=== PATIENT | male | born 1980 | race Caucasian/White ===

== ENCOUNTER 2019-11-14 04:53 | Emergency (ER) | payer OTHER, SELFPAY ==
--- NOTE | ~2019-11-14 | CT_ITS ---
EXAMINATION: CT brain wo con DATE: 11/14/2019 06:12 INDICATION: Fall. Head injury. TECHNIQUE: Computed tomography (CT) of the head was performed without intravenous contrast. The mA wa s adjusted according to patient size. Iterative reconstruction technique was employed. Exam dose: 60 5.33 mGy-cm total exam DLP. COMPARISON: None FINDINGS: No intracranial mass lesion or hemorrhage or cerebrovascular accident is evident. No midlin e shift or mass effect. Normal ventricular size. No subdural or epidural hematoma. There is subcutaneous emphysema in the right chlorination operator space and subcutaneous tissues along the righ t scalp consistent with clinically. Laceration according to the clinician. No skull fracture or bone destruction. No radiopaque foreign body is evident. Included paranasal sinuses and mastoid air cells are unremarkable except for focal posterolateral rig ht ethmoid air cell opacification and approximately 11 mm mucus retention cyst or polyp along the lat eral right maxillary sinus wall. IMPRESSION: Subcutaneous emphysema the right chlorination operator space and right scalp consistent with lacera tion; no skull fracture No acute intracranial finding Reviewed, dictated and finalized at [facility]. Reviewed, dictated and finalized at [facility]. IMPRESSION: Subcutaneous emphysema the right chlorination operator space and right scalp consistent with laceration; no skull fracture No acute intracranial finding
[2019-11-14 04:57] VITALS: BP 126/88; PULSE 94; RESP 20; TEMP 36.8; O2SAT 95
--- NOTE | 2019-11-14 05:41 | ED.FALL ---
HPI - Fall General Chief Complaint: Fall Stated Complaint: fall, head inj Time Seen by Provider: 11/14/19 05:40 History of Present Illness HPI Narrative: He had to much to drink tonight and fell a few feet down stairs and struck his head on some lawn care equipment. He has been moderately confused after the fall. No LOC. He sustained a laceration to the right periauricular area. Related Data Home Medications Medication Instructions Recorded Confirmed No Home Medications 11/14/19 11/14/19 Allergies Allergy/AdvReac Type Severity Reaction Status Date / Time Penicillins Allergy Unknown Unknown Verified 11/14/19 05:00 Review of Systems Review of Systems: All systems reviewed & are unremarkable except as noted in HPI and below [facility] Family History Family History Mother Family history of malignant neoplasm of breast in first degree relative Social History Social History (Updated 11/15/19 @ 03:16 by Jose Narayanan MD) Smoking status: Current every day smoker Alcohol intake: current Exam Const: General: healthy appearing, alert and confusion HENMT: Other: 4 cm laceration anterior to the right ear Eyes: Pupils: Equal, round and reactive pupils present Resp: Effort & Inspection: normal respiratory effort Auscultation: clear to auscultation bilaterally Cardio: Rate: regular rate Rhythm: regular rhythm Neuro: General: moves all extremities Cranial nerves: Yes Nystagmus present Speech: Abnormal speech present slurred Course Vital Signs Vital signs: Vital Signs Temperature 36.8 C 11/14/19 04:57 Pulse Rate 94 11/14/19 04:57 Respiratory Rate 11/14/19 04:57 Blood Pressure 126/88 11/14/19 04:57 Pulse Oximetry 95 11/14/19 04:57 Temperature 36.8 C 11/14/19 04:57 Pulse Rate 94 11/14/19 04:57 Respiratory Rate 11/14/19 04:57 Blood Pressure 126/88 11/14/19 04:57 Pulse Oximetry 95 11/14/19 04:57 Procedures Laceration Laceration 1: Site: face Side (If applicable): right Size (cm): 4 Description: irregular Depth: simple, single layer Amount of anesthesia used (mL): 4 ====== Skin Level ====== Skin layer closed with: other (fast gut) Size (cm): 5-0 Number of sutures: 5 Technique: simple, interrupted ====== Subcutaneous Layer ====== ====== Muscle Layer ====== ====== Tendon Layer ====== MDM - Fall MDM Narrative Medical decision making narrative: Obtained head CT due to trauma with abnormal CGS and signs of rauma above clavicles, although this is like just due to intoxication. Imaging Data Radiologist's impression: ITS Impressions Head CT 11/14/19 10:47 IMPRESSION: Subcutaneous emphysema the right title curator space and right scalp consistent with laceration; no skull fracture No acute intracranial finding Discharge Plan Discharge Clinical Impression: Facial laceration Patient Disposition: Home, Self-Care Condition: Stable Instructions: Laceration (ED) Prescriptions: No Action No Home Medications RF: 0 Follow-up/Referrals: Zach Taylor DO [Primary Care Provider] - Discharge Date/Time: 11/14/19 06:45 Quality Ledy Coma Scale Eyes: To Voice Verbal: Oriented and Alert Motor: Follows Commands Ledy Coma Total Score: 14
[2019-11-14] MEDS: TETANUS,DIPHTHERIA,AC PERTUSSIS ADULT (0.5 ML) BOOSTRIX IM (05:59)
== END 2019-11-14 06:45 | disposition home or self-care (01) ==
PROVIDERS: Emergency Provider Emergency Medicine; PCP Internal Medicine
DX: S01.311A Laceration without foreign body of right ear, initial encounter (principal); F17.200 Nicotine dependence, unspecified, uncomplicated; Z23 Encounter for immunization; W10.9XXA Fall (on) (from) unspecified stairs and steps, initial encounter
CPT/HCPCS: 12013; 70450; 90471; 90715; 99284

== ENCOUNTER 2022-05-15 11:59 | Emergency (ER) | payer BC, SELFPAY ==
[2022-05-15 12:08] VITALS: BP 144/93; PULSE 80; RESP 18; TEMP 36.7; O2SAT 100
--- NOTE | 2022-05-15 12:53 | ED.GENADULT ---
HPI - General Adult General Chief complaint: Extremity Problem,Nontraumatic Stated complaint: L SHOULDER PAIN Time Seen by Provider: 05/15/22 12:44 Source: patient Mode of arrival: ambulatory Limitations: no limitations History of Present Illness HPI narrative: Patient presents today complaining of 2 day history of left posterior shoulder pain. States he woke up in pain a few days ago and has progressively worsened since that time. States his pain was exacerbated by lifting heavy objects at work yesterday. Denies radiation of the pain. Denies numbness or tingling in the arm or hand. He is pain-free at rest, but this pain increases to 8/10 with any movement of the arm and coughing. He has tried Advil today without much relief. Related Data Allergies Allergy/AdvReac Type Severity Reaction Status Date / Time Penicillins Allergy Unknown Hives Verified 05/15/22 12:43 Review of Systems Review of Systems: CONSTITUTIONAL: Denies body aches, fever, chills, or sweats. EYES: Denies visual changes, redness, or discharge. ENT: Denies rhinorrhea, congestion, sore throat, or otalgia. CARDIOVASCULAR: Denies chest pain, palpitations, or edema. RESPIRATORY: Denies cough or dyspnea. GASTROINTESTINAL: Denies abdominal pain, nausea, vomiting, or diarrhea. GENITOURINARY: Denies dysuria or hematuria. SKIN: Denies rash, itching, or wounds. MUSCULOSKELETAL: Denies back pain, joint pain. + left posterior shoulder pain NEUROLOGIC: Denies headache, numbness, tingling, or weakness. PSYCH: Denies depression or anxiety. [facility], [facility] Past Medical History Medical History History of chicken pox History of repaired hypospadias Hypospadias Lipoma Skin disorder Family History Family History Mother Family history of malignant neoplasm of breast in first degree relative Father Leaky heart valve Cancer Sibling Psoriasis Social History Social History Years smoked: 20 Smoking status: Current every day smoker Alcohol intake: current Comments At time of signature, I have reviewed and agree with nursing past medical, surgical, social and family history unless otherwise noted. Please see nursing chart for further information. There is no relevant family history pertinent to the presenting complaint Exam Narrative: GENERAL: Well-appearing, well-nourished, and in moderate pain distress. HEAD: Normocephalic, atraumatic. EYES: EOMI. No redness or drainage. Conjunctivae normal. ENT: Mucous membranes pink and moist. NECK: Normal AROM with increased pain in the trapezius with movement of the neck. No pain with palpation of the neck CHEST: No respiratory distress. EXTREMITIES: Tenderness to the scapular area of the trapezius. Full range of motion of the left shoulder with significant increased pain in all directions. Distal sensation intact in all 5 fingers. Capillary refill normal. Radial pulse normal. Hand home health travel ot equal and strong. SKIN: Warm, dry, no rash. Capillary refill normal. Normal skin turgor. NEURO: No focal deficits. Alert and oriented x3. Gait steady. PSYCH: Normal affect. No signs of depression or anxiety. Course Course Level of Care: Express Care Visit Vital Signs Vital signs: Vital Signs Temperature 98.1 F 05/15/22 12:08 Pulse Rate 80 05/15/22 12:08 Respiratory Rate 18 05/15/22 12:08 Blood Pressure 144/93 H 05/15/22 12:08 Pulse Oximetry 100 05/15/22 12:08 Oxygen Delivery Room Air 05/15/22 12:08 Temperature 98.1 F 05/15/22 12:08 Pulse Rate 80 05/15/22 12:08 Respiratory Rate 18 05/15/22 12:08 Blood Pressure 144/93 H 05/15/22 12:08 Pulse Oximetry 100 05/15/22 12:08 Oxygen Delivery Room Air 05/15/22 12:08 Reviewed. Pt has been instructed to follow up with his PCP regarding his elevated blood pressure t
== END 2022-05-15 13:03 | disposition home or self-care (01) ==
PROVIDERS: Emergency Provider Nurse Practitioner
DX: S46.812A Strain of other muscles, fascia and tendons at shoulder and upper arm level, left arm, initial encounter (principal); X58.XXXA Exposure to other specified factors, initial encounter; F17.290 Nicotine dependence, other tobacco product, uncomplicated
CPT/HCPCS: 99213; G0463

== ENCOUNTER 2022-05-30 09:39 | Emergency (ER) | payer BC, SELFPAY ==
--- NOTE | ~2022-05-30 | XR_ITS ---
EXAMINATION: XR foot LT min 3V DATE: 05/30/2022 10:10 INDICATION: Left foot pain post injury TECHNIQUE: Dorsoplantar, two oblique and lateral views of the left foot were obtained. COMPARISON: None. FINDINGS: Minimal displacement and 10 degree dorsal/medial angulation of an oblique fracture of the mid to dist al diaphysis of the left fifth metatarsal. No other fractures identified. Hallux valgus with mild ost eoarthritis at the first metatarsophalangeal joint and early developing bunion with mild cystic bridges e at the medial head of the first metatarsal. Subtle flattening of portion of the articular surfaces at the heads of the second and third metatarsals without underlying some articular sclerosis or lucen cy suggesting sequela of chronic osteonecrosis/Freiberg's infraction. Remaining joint spaces are norm al. IMPRESSION: 1. Minimally displaced mildly angulated oblique fracture of the mid to distal diaphysis of the left f ifth metatarsal. 2. Hallux valgus with mild osteoarthritis at the first metatarsophalangeal joint and developing bunio n. Reviewed, dictated and finalized at [facility]. ARCHITECT IMPRESSION: 1. Minimally displaced mildly angulated oblique fracture of the mid to distal d iaphysis of the left fifth metatarsal. 2. Hallux valgus with mild osteoarthritis at the first metatarsophalangeal join t and developing bunion.
--- NOTE | 2022-05-30 09:53 | ED.LOWEXIN ---
HPI - Extremity Injury (Lower) General Chief Complaint: Extremity Injury, Lower Stated Complaint: Left foot injury. Time Seen by Provider: 05/30/22 09:53 Source: patient Mode of arrival: ambulatory Limitations: no limitations History of Present Illness HPI Narrative: 41-year-old male presents with complaint of pain and swelling to left foot. Reports approximately 3 days ago while at work he smashed his foot between a truck and loading dock. 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 Ambulatory with slight limp. States swelling is getting worse. Range of motion and distal neurovascularly intact. All systems reviewed and negative except as noted above. Related Data Allergies Allergy/AdvReac Type Severity Reaction Status Date / Time Penicillins Allergy Unknown Hives Verified 05/30/22 09:54 Review of Systems Review of Systems: CONSTITUTIONAL: Denies fever, chills, or sweats. EYES: Denies visual changes, redness, or discharge. ENT: Denies rhinorrhea, congestion, sore throat, or otalgia. CARDIOVASCULAR: Denies chest pain, palpitations, or edema. RESPIRATORY: Denies cough or dyspnea. GASTROINTESTINAL: Denies abdominal pain, nausea, vomiting, or diarrhea. GENITOURINARY: Denies dysuria or hematuria. SKIN: Denies rash or itching. MUSCULOSKELETAL: Reports pain and swelling left foot. NEUROLOGIC: Denies headache, numbness, or weakness. PSYCHIATRIC: Denies anxiety or depression. All other systems reviewed are negative, except as documented in HPI. PMFSH Past Medical History Medical History History of chicken pox History of repaired hypospadias Hypospadias Lipoma Skin disorder Family History Family History Mother Family history of malignant neoplasm of breast in first degree relative Father Leaky heart valve Cancer Sibling Psoriasis Social History Social History Years smoked: 20 Smoking status: Current every day smoker Alcohol intake: current Comments At time of signature, agree with nursing past medical, surgical, social and family history. There is no relevant family history pertinent to the presenting complaint. Exam Narrative: GENERAL: This is a well-nourished, well-developed patient, in no apparent distress. HEAD: normocephalic, atraumatic. EYES: PERRL. Sclera clear/white. Vision is grossly intact. EARS: External ears normal NOSE: External nose normal NECK: Neck supple, non-tender without lymphadenopathy, masses or thyromegaly. CARDIOVASCULAR: Regular rate and rhythm without murmurs, gallops, or rubs. RESPIRATORY: Clear to auscultation. Breath sounds equal bilaterally. No wheezes, rales, or rhonchi. SKIN: warm, Dry, intact with no suspicious lesions or rash, good texture and turgor. NEURO: awake, alert, and oriented to person, place and time. There were no obvious focal neurologic abnormalities. EXTREMITIES: Tenderness to left 5th metatarsal, left distal 4th metatarsal. Bruising to distal aspect 2nd 3rd 4th metatarsals. Swelling to dorsal aspect. Left DP pulse 2 +. Range of motion intact. Course Course Level of Care: Express Care Visit Vital Signs Vital signs: Vital Signs Temperature 37.3 C 05/30/22 09:55 Pulse Rate 86 05/30/22 09:55 Respiratory Rate 20 05/30/22 09:55 Blood Pressure 122/88 05/30/22 09:55 Pulse Oximetry 100 05/30/22 09:55 Oxygen Delivery Room Air 05/30/22 09:55 Temperature 37.3 C 05/30/22 09:55 Pulse Rate 86 05/30/22 09:55 Respiratory Rate 20 05/30/22 09:55 Blood Pressure 122/88 05/30/22 09:55 Pulse Oximetry 100 05/30/22 09:55 Oxygen Delivery Room Air 05/30/22 09:55 Reviewed MDM - Extremity Injury (Lower) MDM Narrative Medical decision making narrative: Patient is aware of diagnosis, understands and agrees to treatment plan. Anticipatory gu
[2022-05-30 09:55] VITALS: BP 122/88; PULSE 86; RESP 20; TEMP 37.3; O2SAT 100
== END 2022-05-30 10:58 | disposition home or self-care (01) ==
PROVIDERS: Emergency Provider Nurse Practitioner Family
DX: S92.352A Displaced fracture of fifth metatarsal bone, left foot, initial encounter for closed fracture (principal); X58.XXXA Exposure to other specified factors, initial encounter; Y99.0 Civilian activity done for income or pay; F17.200 Nicotine dependence, unspecified, uncomplicated
CPT/HCPCS: 73630; 99214; G0463

== ENCOUNTER 2022-11-19 19:32 | Emergency (ER) | payer BC, SELFPAY ==
[2022-11-19 19:38] VITALS: BP 150/104; PULSE 76; RESP 14; TEMP 36.6; O2SAT 100
[2022-11-19 19:55] LABS: Basophils Absolute Auto 0.1 K/mm3 (0.0-0.1); Basophils Percent Auto 1.8 % (0.2-1.2); Eosinophils Percent Auto 0.8 % (0-4.4); Hemoglobin 17.5 g/dL (14.0-18.0); Immature Granulocyte Absolute 0.01 K/mm3 (0.00-0.031); Immature Granulocyte Percent A 0.2 % (0-0.5); Lymphocytes Absolute Auto 1.73 K/mm3 (0.9-3.2); Lymphocytes Percent Auto 34.1 % (18.3-44.2); Mean Corpuscular Hemoglobin 31.6 pg (26-34); Mean Corpuscular Volume 90.4 fl (80-100); Mean Platelet Volume 9.1 fl (7.4-10.4); Monocytes Absolute Auto 0.4 K/mm3 (0.1-0.6); Monocytes Percent Auto 8.5 % (2.6-8.5); Neutrophils Absolute Auto 2.8 K/mm3 (1.3-6.7); Neutrophils Percent Auto 54.6 % (45.5-73.1); Platelet Count Result 267 k/mm3 (150-375); Red Blood Count 5.53 M/mm3 (4.6-6.20); Red Cell Distribution Width 13.4 % (11.5-14.5); White Blood Count 5.1 K/mm3 (4.5-10.0)
[2022-11-19 20:09] LABS: Alanine Aminotransferase 95 U/L (6-50); Albumin Level 4.3 g/dL (3.5-5.1); Alkaline Phosphatase 102 U/L (38-126); Anion Gap 12 mmol/L (8-16); Aspartate Amino Transferase 151 U/L (17-59); Bilirubin,Total 1.1 mg/dL (0.2-1.3); Blood Urea Nitrogen 17 mg/dL (9-20); Calcium 8.4 mg/dL (8.4-10.2); Carbon Dioxide 22 mmol/L (22-30); Chloride 101 mmol/L (98-107); Estimated CRCL calculation 80 ml/min; Estimated Glomerular Filt Rate > 60; Glucose 105 mg/dL (65-110); Lipase 103 U/L (23-300); Sodium 135 mmol/L (137-145)
[2022-11-19] MEDS: LORazepam INJ (*CRX) 2 MG/ML VIAL 0.5 MG IV PUSH (21:38)
[2022-11-19] MEDS: ONDANSETRON INJ 4 MG/2 ML VIAL IV PUSH (21:54)
--- NOTE | 2022-11-19 21:56 | PC.NURSE ---
unable to tolerate NG placement for lavage. provider aware.
[2022-11-19 22:21] LABS: Appearance Urine Cloudy (Clear); Bacteria Urine None Seen /hpf; Bilirubin Urine 1+ (Negative); Blood Urine Negative (Negative); Color Urine Dark Yellow (Yellow); Glucose Urine UA Negative (Negative); Ketones Urine 1+ mg/dL (Negative); Leukocyte Esterase Ur Negative LEU/UL (Negative); Mucus Urine Present /lpf; Need Manual Microscopic Reviewed; Nitrate Urine Negative (Negative); Non Pathogenic Casts >20; Protein Urine 1+ mg/dL (Negative); RBC Urine 0-2 /hpf (0-2); Specific Grav Ur 1.031 (1.001-1.035); Squamous Epithelial Cell Urine Few /hpf (Few); WBC Urine 0-5 /hpf
[2022-11-19 22:22] LABS: Add Urine Microscopic? YES
[2022-11-19 23:08] VITALS: BP 110/80; PULSE 78; RESP 20; O2SAT 96
--- NOTE | 2022-11-19 23:12 | ED.ABDPAIN ---
HPI - Abdominal Pain General Chief Complaint: Abdominal Pain Stated Complaint: abdominal pain w/ vomiting Time Seen by Provider: 11/19/22 21:04 History of Present Illness HPI narrative: Patient is a 41-year-old male who presents ER with epigastric and right upper quadrant pain. Ongoing over the last day. Associated with vomiting and noticed bright red blood in his emesis x3. Reports history of gastric ulcer in the past. No dark black stools. He is on no blood thinners. Denies use of NSAIDs. Denies fevers or chills or sweats. No syncope. Reports he did abuse alcohol over the holiday weekend. Related Data Allergies Allergy/AdvReac Type Severity Reaction Status Date / Time Penicillins Allergy Unknown Hives Verified 11/19/22 19:33 egg AdvReac Severe SOUR Verified 11/19/22 19:33 BURPS, DIARRHEA, wheat AdvReac Severe SOUR Verified 11/19/22 19:33 STOMACH, DIARRHEA Dairy Allergy Severe SOUR Uncoded 11/19/22 19:33 STOMACH, DIARRHEA Review of Systems Review of Systems: All systems reviewed & are unremarkable except as noted in HPI and below Constitutional: Constitutional: Denies chills, Denies fatigue and Denies fever(s) ENT: Denies nasal congestion and Denies sore throat Cardiovascular: Cardiovascular: Denies chest pain, Denies rapid heart rate and Denies radiating jaw, neck or arm pain Respiratory: Respiratory: Denies cough and Denies dyspnea Gastrointestinal: Gastrointestinal: Reports abdominal pain, Reports heartburn, Reports nausea and Reports vomiting Genitourinary: Genitourinary: Denies dysuria and Denies urinary frequency [facility] Past Medical History Medical History (Updated 11/20/22 @ 07:00 by Javi Linda MD) History of chicken pox History of gastric ulcer History of repaired hypospadias Hypospadias Lipoma Skin disorder Surgical History Surgical History (Updated 11/20/22 @ 07:00 by Javi Linda MD) History of esophagogastroduodenoscopy (EGD) Family History Family History Mother Family history of malignant neoplasm of breast in first degree relative Father Leaky heart valve Cancer Sibling Psoriasis Social History Social History (System 09/06/22 @ 13:07 by Jaron Cuellar) Years smoked: 20 Smoking status: Current every day smoker Alcohol intake: current Exam Narrative: GENERAL: Well-appearing, well-nourished, and in no acute distress. HEAD: Normocephalic, atraumatic. ENT: Mucous membranes moist. CHEST: Clear to auscultation. No respiratory distress. HEART: Regular rate and rhythm. Normal peripheral pulses. ABDOMEN: Soft, nontender, nondistended, normal active bowel sounds. EXTREMITIES: Normal range of motion. No edema. SKIN: Warm, dry, no rash. NEURO: Alert and oriented x3. PSYCH: Normal mood and affect. Course Course Emergency Course: Patient did not tolerate 3 attempts at NG placement for gastric lavage. Due to normal hemoglobin, no blood thinners, and no tarry black stools patient be discharged on twice daily Protonix. Recommend follow-up with PCP and/or GI. Vital Signs Vital signs: Vital Signs Temperature 97.9 F 11/19/22 19:38 Pulse Rate 76 11/19/22 19:38 Respiratory Rate 14 11/19/22 19:38 Blood Pressure 150/104 H 11/19/22 19:38 Pulse Oximetry 100 11/19/22 19:38 Oxygen Delivery Room Air 11/19/22 19:38 Temperature 97.9 F 11/19/22 19:38 Pulse Rate 78 11/19/22 23:16 Respiratory Rate 19 11/19/22 23:16 Blood Pressure 124/93 H 11/19/22 23:16 Pulse Oximetry 96 11/19/22 23:16 Oxygen Delivery Room Air 11/19/22 19:38 MDM - Abdominal Pain Lab Data 11/19/22 19:49 11/19/22 19:49 Labs: Lab Results 11/19/22 11/19/22 Range/Units 19:49 22:08 WBC 5.1 (4.5-10.0) K/mm3 RBC 5.53 (4.6-6.20) M/mm3 Hgb 17.5 (14.0-18.0) g/dL Hct 50.0 (42.0-52.0) % MCV 90.4 (80-100) fl [facility]
[2022-11-19 23:16] VITALS: BP 124/93; PULSE 78; RESP 19; O2SAT 96
== END 2022-11-19 23:16 | disposition home or self-care (01) ==
PROVIDERS: Emergency Provider Emergency Medicine
DX: R10.13 Epigastric pain (principal); F17.200 Nicotine dependence, unspecified, uncomplicated
CPT/HCPCS: 36415; 80053; 81001; 83690; 85025; 86850; 86900; 86901; 96374; 96375; 99284; J2060; J2405

== ENCOUNTER 2023-01-02 03:09 | Day surgery (SDC) | payer BC, SELFPAY ==
[2022-12-26 10:36] VITALS: BMI 29.2
--- NOTE | 2023-01-01 13:50 | PM.HPGS ---
History of Present Illness History of Present Illness Consent: Risks, benefits, and alternatives have been discussed and questions answered. Patient agrees to proceed with procedure. Chief complaint: Hx peptic ulcer disease, Hematemesis Narrative: Alexei Mares Jr. is a 42 year old male Referred for investigation of dyspepsia and hematemesis. He has a history of gastric ulcers. he was recently seen in office? for ER follow-up. He presented to [facility] on 11/19/2022 with complaints of epigastric and right upper quadrant pain.? he reports associated vomiting with bright red blood times 3 episodes.? prior to symptoms starting he reports significant alcohol use over weekend. the emergency room had started him on pantoprazole 40 mg per day. He does have chronic heartburn for which she often uses Tums. He in fact had been using omeprazole when he developed the above symptoms. Now that he is on pantoprazole he is feeling much better. He would have a pain just to the right of the epigastric area there was severe when he went to the emergency room and it remind him of the pain he had when he had an ulcer in the past. This pain would come and get worse if he eats something spicy. Review of Systems Review of Systems: All systems reviewed & are unremarkable except as noted in HPI and below PMFSH Past Medical History Medical History GERD (gastroesophageal reflux disease) Hematemesis History of chicken pox History of gastric ulcer History of repaired hypospadias Hypospadias Lipoma Skin disorder Surgical History Surgical History History of esophagogastroduodenoscopy (EGD) Family History Family History Mother Family history of malignant neoplasm of breast in first degree relative Father Leaky heart valve Cancer Sibling Psoriasis Social History Social History Years smoked: 20 Smoking status: Current every day smoker Tobacco type: cigarettes Alcohol intake: current Drinks per week: 10 Substance use: current Substance use type: marijuana Lack of Transportation: No Lack of Food: Never True Current Housing: I Have Housing Concerned About Future Housing: No Difficulty Paying Gas/Electric Bills: No Difficulty Paying for Meds: No Currently Unemployed: No Education: High School Diploma/GED Difficulty w/ Childcare or Family Care: No Living arrangements: with family Spiritual care concerns: No Meds Home Medications and Allergies Home Medications Medication Instructions Recorded Confirmed Type pantoprazole 40 mg tablet,delayed 40 mg PO BID #60 tabs 11/27/22 12/26/22 Rx release Allergies Allergy/AdvReac Type Severity Reaction Status Date / Time Penicillins Allergy Unknown Hives Verified 01/02/23 09:19 egg AdvReac Severe SOUR Verified 01/02/23 09:19 BURPS, DIARRHEA, wheat AdvReac Severe SOUR Verified 01/02/23 09:19 STOMACH, DIARRHEA Dairy Allergy Severe SOUR Uncoded 01/02/23 09:19 STOMACH, DIARRHEA Exam Const: General: alert Orientation/consciousness: patient oriented x3 Resp: Auscultation: clear to auscultation bilaterally Cardio: Rhythm: regular rhythm GI: GI Palp: Yes Soft to palpation and No Tenderness to palpation present (GI) Neuro: General: patient oriented x3 Assessment and Plan Assessment and plan (1) Hematemesis: Code(s): K92.0 - Hematemesis Status: Acute Assessment and Plan: EGD with possible biopsy or dilatation or cautery.
[2023-01-02 09:20] VITALS: BP 128/80; PULSE 69; RESP 18; TEMP 36.2; O2SAT 99
[2023-01-02] MEDS: LACTATED RINGERS 1,000 ML 150 ML IV CONT (09:23)
--- NOTE | 2023-01-02 09:35 | WPDANESEPPF ---
Anes - Initial Pre Proc Eval Procedure: Operation Date: 01/02/23 10:15 Proposed Procedures p Esophagogastroduodenoscopy - Toni Angel MD Date/Time: 01/02/23 09:35 Surgeon: Toni Angel MD Pre Op Diagnosis: Hx peptic ulcer disease, Hematemesis Patient Data Age: 42 Gender: M Height: 1.83 m Weight: 98.4 kg Last Vital Signs Temp 97.2 F L 01/02/23 09:20 Pulse 69 01/02/23 09:20 Resp 18 01/02/23 09:20 BP 128/80 01/02/23 09:20 Pulse Ox 99 01/02/23 09:20 O2 Del Method Room Air 01/02/23 09:20 Allergies Allergy/AdvReac Type Severity Reaction Status Date / Time Penicillins Allergy Unknown Hives Verified 01/02/23 09:19 egg AdvReac Severe SOUR Verified 01/02/23 09:19 BURPS, DIARRHEA, wheat AdvReac Severe SOUR Verified 01/02/23 09:19 STOMACH, DIARRHEA Dairy Allergy Severe SOUR Uncoded 01/02/23 09:19 STOMACH, DIARRHEA Home Medications Medication Instructions Recorded Confirmed Type pantoprazole 40 mg tablet,delayed 40 mg PO BID #60 tabs 11/27/22 12/26/22 Rx release Patient hx anesthesia problems: none Family hx anesthesia problems: none Results Review: All pre-operative results and documents have been reviewed as part of the pre-operative evaluation. [facility] Past Medical History Medical History (Updated 12/03/22 @ 11:16 by Alessia Moulton APN-C) GERD (gastroesophageal reflux disease) Hematemesis History of chicken pox History of gastric ulcer History of repaired hypospadias Hypospadias Lipoma Skin disorder Surgical History Surgical History History of esophagogastroduodenoscopy (EGD) Family History Family History Mother Family history of malignant neoplasm of breast in first degree relative Father Leaky heart valve Cancer Sibling Psoriasis Social History Social History (Updated 11/27/22 @ 08:07 by Milena Baez MA) Years smoked: 20 Smoking status: Current every day smoker Tobacco type: cigarettes Alcohol intake: current Drinks per week: 10 Substance use: current Substance use type: marijuana Lack of Transportation: No Lack of Food: Never True Current Housing: I Have Housing Concerned About Future Housing: No Difficulty Paying Gas/Electric Bills: No Difficulty Paying for Meds: No Currently Unemployed: No Education: High School Diploma/GED Difficulty w/ Childcare or Family Care: No Living arrangements: with family Spiritual care concerns: No Anes - Eval Final PreProcedure Day of Procedure 01/02/23 09:35 Patient weight: normal Heart: regular rate and rhythm Lungs: clear to auscultation Airway: Mallampati scale class II Neurological: alert and oriented Last oral intake: >/= 8 hours ASA classification: II Emergent: no Anesthetic plan: proceed Anesthesia type and monitoring: general GIVS and standard monitoring Results Review: All pre-operative results and documents have been reviewed as part of the pre-operative evaluation. Informed Consent: The patient's anesthetic plan and its attendant risks and benefits were discussed with the patient/family/POA. Questions were solicited and answers provided to the satisfaction of the patient/family/POA.
[2023-01-02] MEDS: SIMETHICONE ORAL SUSPENSION 20 MG/0.3 ML 30 ML BOTTLE 0.6 ML IRRIGATION (09:49)
[2023-01-02 09:56] VITALS: BP 121/83; PULSE 78; RESP 22; O2SAT 97
[2023-01-02 10:06] VITALS: BP 129/92; PULSE 66; RESP 17; O2SAT 96
[2023-01-02 10:16] VITALS: BP 135/93; PULSE 64; RESP 14; O2SAT 98
== END 2023-01-02 10:23 | disposition home or self-care (01) ==
PROVIDERS: PCP Internal Medicine; Visit Provider Internal Medicine Gastroenterology
PROC: 0DJ08ZZ Inspection of Upper Intestinal Tract, Via Natural or Artificial Opening Endoscopic (ICD-10-PCS; CPT 43235; principal; 2023-01-02 10:15)
DX: K21.9 Gastro-esophageal reflux disease without esophagitis (principal); K26.9 Duodenal ulcer, unspecified as acute or chronic, without hemorrhage or perforation; F17.210 Nicotine dependence, cigarettes, uncomplicated; F12.90 Cannabis use, unspecified, uncomplicated
CPT/HCPCS: 43239; 87081; 88305; J2704; J7120